=== PATIENT | female | born 1955 | race Caucasian/White ===

== ENCOUNTER 2021-11-28 17:07 | Emergency (ER) | payer BC ==
[2021-11-28 18:23] LABS: HEMOGLOBIN 12.7 gm/dl (12.3-15.3); RED BLOOD COUNT 4.17 M/UL (4.00-5.10); WHITE BLOOD COUNT 7.2 K/UL (4.5-11.0)
[2021-11-28 18:42] LABS: BUN/CREATININE RATIO 26 (0-10)
[2021-11-29] MEDS ORDERED: CLINDAMYCIN HC300 MG PO (02:40)
== END 2021-11-29 02:58 | disposition home or self-care (01) ==
LOC: ER1 17:07
PROVIDERS: Physician Assistant
DX: K04.7 Periapical abscess without sinus (principal); Z85.118 Personal history of other malignant neoplasm of bronchus and lung; Z90.49 Acquired absence of other specified parts of digestive tract
CPT/HCPCS: 70487; 70491; 80053; 85025; 96374; 99283; J1885; Q9967